=== PATIENT | female | born 1965 | race Two or more races ===

== ENCOUNTER 2017-02-17 09:10 | Day surgery (SDC) | payer OTHER ==
[2017-02-17 10:08] LABS: ALBUMIN 3.5 g/dl (3.4-5.0); ANION GAP 7 (8-16); CALCIUM 8.8 mg/dL (8.5-10.1); CO2 25 mmol/L (21-32); CREATININE 0.5 mg/dL (0.55-1.02); GLUCOSE,RANDOM 84 mg/dL (74-106); SGOT/AST 11 U/L (15-37); SGPT/ALT 31 U/L (12-78)
[2017-02-17 10:10] LABS: ALK PHOS 59 U/L (45-117); BILIRUBIN,TOTAL 0.3 mg/dL (0.2-1.0)
[2017-02-17] MEDS ORDERED: ACETAMINOPHEN 325 MG TABLET (FP) PO ONE (10:15)
[2017-02-17 10:23] VITALS: TEMP 98.3
[2017-02-17 10:25] LABS: COCKROFT - GAULT 151.9715
[2017-02-17] MEDS ORDERED: ZOLEDRONIC ACID/MAN/WATER 100 ML IVPB ONE (10:45)
[2017-02-17 11:46] VITALS: BP 100/51; PULSE 65
== END 2017-02-17 11:40 | disposition home or self-care (01) ==
LOC: JCHEMO 09:10
PROVIDERS: ATTEND Family Medicine
PROC: 3E033GC Introduction of Other Therapeutic Substance into Peripheral Vein, Percutaneous Approach (ICD-10-PCS; principal; 2017-02-17)
DX: M81.0 Age-related osteoporosis without current pathological fracture (principal)
CPT/HCPCS: 96365; J3489; 36415; 80053